=== PATIENT | male | born 1955 | race Caucasian/White ===

== ENCOUNTER → 2016-10-08 | Outpatient (CLI) | payer BC ==
[~2016-10-08] MED LIST: ASPI81TA28 PO; HYDR-5688 PO; IBUP-1050 PO; IBUP1TAB55 PO; PRLSR20 PO
[2016-10-08 10:49] LABS: BLOOD UREA NITROGEN 22 mg/dl (7-18); BUN/CREATININE RATIO 16.9 (10-20); CALCIUM 9.1 mg/dl (8.5-10.1); CARBON DIOXIDE 26 mmol/L (21-32); CHLORIDE 108 mmol/L (98-107); GLUCOSE 90 mg/dl (70-99); POTASSIUM 4.1 mmol/L (3.5-5.1); SODIUM 143 mmol/L (136-145)
[2016-10-08 10:53] LABS: CHOLESTEROL 208 mg/dl (0-200); CHOLESTEROL/HDL RATIO 3.9; HDL CHOLESTEROL 54 mg/dl; LDL CHOLESTEROL CALCULATED 123 mg/dl; TRIGLYCERIDES 153 mg/dl (0-150); VERY LOW DENSITY LIPOPROT CALC 31 mg/dl
== END | disposition home or self-care (01) ==
LOC: C.LAB 07:53
DX: R10.13 Epigastric pain (principal); Z13.220 Encounter for screening for lipoid disorders; E78.4 Other hyperlipidemia

== ENCOUNTER → 2017-04-12 | Outpatient (CLI) | payer BC ==
[2017-04-12 12:41] LABS: BLOOD UREA NITROGEN 19 mg/dl (7-18); BUN/CREATININE RATIO 15.6 (10-20); CALCIUM 8.7 mg/dl (8.5-10.1); CARBON DIOXIDE 25 mmol/L (21-32); CHLORIDE 107 mmol/L (98-107); CHOLESTEROL 194 mg/dl (0-200); GLUCOSE 88 mg/dl (70-99); POTASSIUM 4.2 mmol/L (3.5-5.1); SODIUM 141 mmol/L (136-145)
[2017-04-12 12:48] LABS: CHOLESTEROL/HDL RATIO 3.9; FERRITIN 48.8 ng/ml (8.0-388.0); HDL CHOLESTEROL 50 mg/dl; LDL CHOLESTEROL CALCULATED 111 mg/dl; TRIGLYCERIDES 165 mg/dl (0-150); VERY LOW DENSITY LIPOPROT CALC 33 mg/dl
[2017-04-13 11:49] LABS: C-REACTIVE PROT HIGHSEN 0.2 MG/L
== END | disposition home or self-care (01) ==
LOC: C.LAB 10:25
DX: E78.5 Hyperlipidemia, unspecified (principal); R10.13 Epigastric pain

== ENCOUNTER 2017-07-17 15:45 | Emergency (ER) | payer BC ==
[~2017-07-17] VITALS: Ht 177.8 cm; Wt 92.6 kg
[2017-07-17 15:48] VITALS: BP 142/87; PULSE 108; TEMP 37.3; O2SAT 95; Ht 177.8 cm; Wt 92.6 kg
[2017-07-17] MEDS ORDERED: VNTHFA/IN INH (16:28)
[2017-07-17] MEDS ORDERED: ACET1TAB84 PO (16:28)
[2017-07-17] MEDS ORDERED: ZNTT/150 PO (16:28)
--- NOTE | 2017-07-17 17:41 | EMERGENCY ROOM VISIT NOTE ---
History First contact with patient: 15:53 Chief Complaint: OTHER COMPLAINT Stated Complaint: VOCAL CHORD GOING History of Present Illness The patient is a 62 year old male who presents to the Emergency Room with complaints of sinus congestion, sore throat, and loss of voice over the past 2 days. The patient considers himself usually healthy and does not take medication on regular basis. He concerned as he is having loss of voice over the past half day. He has not had fever or chills. He has a mild nonproductive cough. He does not have known exposure to disease. He does not smoke or use smokeless tobacco. No history of thyroid disease. No injury or trauma. He rates his discomfort a 1/10. Review of Systems More than 10 systems were reviewed and otherwise negative with the exception of history of present illness. Past Medical/Surgical History Medical Problems: (1) HTN (hypertension) Family History FHx: gallstones FATHER Social History Smoking Status: Never Smoker Alcohol Use: occasionally Drug Use: none Marital Status: Housing Status: lives with family Occupation Status: employed Current/Historical Medications Scheduled Albuterol Hfa (Ventolin Hfa), 2 PUFFS INH Q6H Aspirin (Aspirin Ec), 81 MG PO DAILY Ranitidine (Zantac), 150 MG PO BID Scheduled PRN Acetaminophen (Tylenol Arthritis Ext Rel), 1,300 MG PO Q8H PRN for Pain Ibuprofen (Advil), 400-600 MG PO Q6 PRN for Pain Physical Exam Vital Signs Date Time Temp Pulse Resp B/P (MAP) Pulse Ox O2 Delivery O2 Flow Rate FiO2 07/17/17 15:48 37.3 108 18 142/87 95 Room Air Physical Exam VITALS: Vitals are noted on the nurse's note and reviewed by myself. Vital signs stable. GENERAL: Well-developed, well-nourished, white male, who is in no acute distress and resting comfortably. Patient is cooperative with the examination. HEAD: Normocephalic atraumatic. EARS: External ear normal. External auditory canals clear, tympanic membranes pearly barba without erythema or effusion bilaterally. EYES: Pupils equal round and reactive to light and accommodation. Conjunctivae without injection, sclerae without icterus. Extraocular movements intact. NOSE: Patent, turbinates without inflammation or discharge. MOUTH: Mucous membranes moist. Tonsils are surgically absent. Pharynx without erythema, blood, or exudate. Uvula midline. Airway patent. NECK: Supple without nuchal rigidity. No lymphadenopathy. No thyromegaly. Cervical spine is nontender. HEART: Regular rate and rhythm without murmurs gallops or rubs. LUNGS: Clear to auscultation bilaterally without wheezes, rales or rhonchi. No retractions or accessory muscle use. Medical Decision & Procedures ED Course Physical exam and history were performed. Nursing notes, EMR, and Medication List were personally reviewed. Patient appears to have flulike symptoms but no fever. He does have laryngitis on examination. His exam is otherwise unremarkable, and he likely has a flulike illness. I discussed options of care the patient and he will be treated conservatively. He does not smoke and there is no sign of airway obstruction. He needs to follow with his primary care physician if symptoms persist. I do expect things to improve for him over the next few days. He is otherwise welcome ER with any new, worsening, or concerning symptoms. The chart was completed utilizing [employer] Speech Voice Recognition Software. Grammatical errors, random word insertions, pronoun errors, and incomplete sentences are an occasional consequence of this system due to software limitations, ambient noise, and hardware issues. Any formal questions or concerns about the content, text, or information contained within the body of this dictation should be directly addressed to the provider for clarification. . Medical Decision Differential diagnosis: Etiologies such as viral syndrome, otitis, pharyngitis, pneumonia, influenza, meningitis, urinary tract infection, sepsis, bacteremia, as well as others were entertained. Impression Primary Impression: Influenza-like illness Departure Information Dispostion Home / Self-Care Condition GOOD Forms HOME CARE DOCUMENTATION FORM, IMPORTANT VISIT INFORMATION Patient Instructions My [facility] Additional Instructions You were seen and evaluated today on an emergency basis only. This is not a substitute for, or an effort to provide, complete comprehensive medical care. It is not possible to recognize and treat all injuries or illnesses in a single emergency department visit. For this reason it is recommended that you followup with your primary care physician if symptoms persist longer than the next 7-10 days. For baseline pain relief you may alternate ibuprofen and acetaminophen every 4 hours for pain control. Take 600 mg ibuprofen (Advil) and then 4 hours later take 1000 mg acetaminophen (Tylenol). Do not take more than 3000 mg acetaminophen in a single day. Drink plenty of fluids and remain well hydrated. You are welcome to return to the emergency department anytime with new, worsening, or concerning symptoms.
== END 2017-07-17 16:29 | disposition home or self-care (01) ==
LOC: C.EDB 15:46 → C.EDC 16:29
DX: R09.81 Nasal congestion (principal); J02.9 Acute pharyngitis, unspecified; J04.0 Acute laryngitis; I10 Essential (primary) hypertension; Z79.82 Long term (current) use of aspirin

== ENCOUNTER 2023-08-03 05:58 | Inpatient (IN) ==
--- NOTE | 2023-07-15 10:05 | PAT Medication Instructions ---
Medication Instructions Date of Service July 15, 2023 Home Medications aspirin 81 mg tablet,delayed release 81 mg PO QAM famotidine 40 mg tablet 40 mg PO DAILY PRN gerd omega-3 fatty acids [Fish Oil Concentrate] 1 dose PO QAM ASK your prescriber and surgeon aspirin 81 mg tablet,delayed release 81 mg PO QAM STOP taking 2 weeks before surgery (or as soon as possible if surgery is within 2 weeks) omega-3 fatty acids [Fish Oil Concentrate] 1 dose PO QAM Take morning of surgery With a small sip of water, OTHERWISE NOTHING TO EAT OR DRINK AFTER MIDNIGHT: famotidine 40 mg tablet 40 mg PO DAILY PRN gerd (if needed) Other Notes If you have any questions please call us at [phone] or [phone] or [phone] or [phone]
--- NOTE | 2023-07-20 10:22 | Anesthesiology Consultation ---
Date of Service July 20, 2023 Assessment & Plan (1) Encounter for pre-operative examination: Chart Review Chart Review: Acceptable Risk for Surgery and Patient seen in Pre Admission Testing Per PAT appt on 07/20/23, no recent illness/disease exposures, illness related symptoms, or recent illness/disease positive tests. Will leave to surgeon's discretion if preop Covid testing needed Teaching & Discussion Pre-Anesthesia Teaching/Discussion Notes: Instructed NPO after midnight before surgery,except medications with 15 cc of water. Medication instructions provided according to the PAT guidelines. History Surgery Operation Date: 08/03/23 07:30 Proposed Procedures p Robotic Assisted Laparoscopic Radical Retropubic Prostatectomy, Possible Open, Possible Pelvic Lymph Node Dissection - Devante Garcia MD Height/Weight Height: 5 ft 10.5 in Weight: 91.6 kg Allergies Allergy/AdvReac Type Severity Reaction Status Date / Time latex Allergy Mild RASH Verified 07/15/23 09:38 clarithromycin Allergy Unknown Palpitation Verified 07/15/23 09:38 s HAYFEVER Allergy Unknown SEASONAL Uncoded 07/15/23 09:38 ALLERGIES Medications Home Medications Medication Instructions Recorded Confirmed Last Taken aspirin 81 mg tablet,delayed 81 mg PO QAM 02/06/20 07/15/23 Unknown release famotidine 40 mg tablet 40 mg PO DAILY PRN gerd 02/06/20 07/15/23 Unknown omega-3 fatty acids [Fish Oil 1 dose PO QAM 02/06/20 07/15/23 Unknown Concentrate] Past Medical History Medical History GERD (gastroesophageal reflux disease) Well controlled and stable with PRN Pepcid 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 History of migraine History of skin cancer Stage 0 melanoma- removed Prostate cancer recently dx'd PVCs (premature ventricular contractions) per patient - noted during EGD procedure around 2012 - no recent issues Exercise / Class Metabolic Activity II 4-5 Yardwork/Stairs/Walk up hill (one flight of stairs - no chest pain or SOB; jogs/walks 2 miles 3 times weekly (including hills)) Past Family History Family History Other No family history of adverse response to anesthesia Past Surgical History Surgical History (Updated 07/20/23 @ 10:39 by Esther Ramírez PA-C) History of colonoscopy History of esophagogastroduodenoscopy (EGD) History of hand surgery Rt History of oral surgery History of prostate biopsy History of tonsillectomy and adenoidectomy Past Anesthesia History No Hx of Anesthesia Complications and No Family Hx of Anesthesia Complications History of PONV No Hx of PONV and No Hx of Motion Sickness Social History Smoking Status: Never smoker Do You Dip or Chew Tobacco: No Hx Alcohol Use: Yes Alcohol type: beer alcohol intake frequency: other Alcohol Intake Frequency Comment: one beer a month Hx Substance Use: No substance use type: does not use Review of Systems - Seasonal allergies/environmental allergies- occ allergy symptoms throughout the year Patient denies chest pain, shortness of breath, dyspnea on exertion, cough, whe ezing, palpitations. No hx of seizures, stroke, GA, apnea/snoring. No hx of blood clots or blood transfusions Physical Exam Vital Signs VITALS BP 129/81 P 84 TEMP 98.4 SP02 96% RESP 16 Constitutional no acute distress ENMT Mouth: no TMJ clicking Thyromental Distance: > or= 3.5 Finger Breadths (4.0) Mallampati Class: II Missing teeth (molars) Permanent implants on side teeth Neck + limited neck extension (mild) Respiratory normal respiratory effort; no respiratory distress Auscultation: lungs clear to auscultation bilaterally; no wheezes Cardiovascular Rate/Rhythm: regular rate and regular rhythm Heart Sounds: no murmur Vessels: no carotid bruit Musculoskeletal Spine: no pain with cervical ROM Extremities: extremities normal to inspection Psychiatric Orientation: alert Lab Results Anesthesia Preop Results Results Anesthesia Widget: WBC 5.33 K/ul (4.8-10.8) 07/20/23 Hgb 15.4 g/dl (14.0-18.0) 07/20/23 Hct 46.3 % (42.0-52.0) 07/20/23 Plt 191 K/uL (130-400) 07/20/23 Na 138 mmol/L (136-145) 07/20/23 K 4.8 mmol/L (3.5-5.1) 07/20/23 Cl 106 mmol/L (98-107) 07/20/23 CO2 27 mmol/L (21-32) 07/20/23 BUN 21 mg/dl (6-23) 07/20/23 Creat 1.11 mg/dl (0.6-1.4) 07/20/23 Glucose Level 100 mg/dl (70-99(Fasting)) H 07/20/23 Blood Type O Positive 07/20/23 Antibody Screen NEGATIVE 07/20/23 Testing Laboratory Results 07/14/23= URINE CULTURE: Lactobacillus species, 20,000 CFU/ml Electrocardiogram Date: 07/20/23 Findings: + NSR @ (78bpm) Normal EKG per cardio Chest X-Ray Date: 07/20/23 Findings: + NAD FINDINGS: No pneumothorax. No pleural effusions. The lungs are clear. The heart is normal in size. There is a tortuous thoracic aorta. No acute fractures identified Other Testing Bone scan nuclear 06/17/2023 = No scintigraphic evidence of skeletal metastasis. Abdominal/pelvis CT 06/17/23 = No acute intra-abdominal or intrapelvic abnormality. No lymphadenopathy or osteoblastic skeletal metastasis identified. Prostatomegaly with chronic outlet obstruction.
--- OUTSIDE RECORDS SUMMARY | 2023-08-03 06:05 | External Medical Summary | Summary of Care ---
Author Name Unknown Organization [facility] Address [address] [address] Phone [phone] Care Team Providers Care Sap Bw Developer Name Role Phone Anthony Roy DO Primary Care Provider [phone] Reason for Visit * Reason Onset Date Comments Appointment 07/23/2023 Encounter Details Date Type Department Care Team (Late st Contact Info) Description 07/23/2023 [facility] [address] [facility] [place] [phone] Anthony Roy DO [address] [facility] [place] [address] Appointment Allergies Active Allergy Reactions Criticality Noted Date Comments Adhesive Tape Rash 02/27/2008 Clarithromycin 01/27/2022 Other reaction(s): Palpitations Ragweed 01/27/2022 Other reaction(s): itchy eyes, itchy throat documented as of this encounter (statuses as of 07/29/2023) Medications Medication Sig Dispensed Refills Start Date End Date Status CLARITIN TABS 10 MG ORIndications:Allerg ic rhinitis due to other allergen one tab by mouth daily 90 1 01/16/2002 Active ASPIRIN 81 MG PO TABS None Entered 0 Active Famotidine 40 MG Oral Tablet (Pepcid) TAKE 1 TABLET BY MOUTH EVERY DAY BEFORE A MEAL DIRECTED 0 11/08/2021 Active [place]-3 1400 MG Oral Capsule Take by mouth . 0 Active Mens 50+ Multi Vitamin/Min Oral Tablet Take by mouth . 0 Active Ciclopirox 8 % External Solution Apply over nail and surrounding skin. Apply daily over previous coat. After seven (7) days, may remove with alcohol and continue cycle. 6.6 mL 3 08/07/2022 Active documented as of this encounter (statuses as of 07/29/2023) Active Problems Problem Noted Date Diagnosed Date Prostate cancer 07/13/2023 Elevated prostate specific antigen (PSA) 022 Gallbladder sludge 01/27/2022 Gastroesophageal reflux disease without esophagi tis 01/27/2022 Seasonal allergies 01/27/2022 History of malignant melanoma 01/27/2022 Insomnia 11/20/2013 ADVANCE DIRECTIVE INFORMATION 02/27/2008 Overview: No, Advance Directive brochure offered , patient declined. documented as of this encounter (statuses as of 07/29/2023) Immunizations Name Administration Dates Next Due COVID-19 mRNA, LNP-s, No Pre serve, 2-Dose Series (Moderna) 08/17/2020,07/13/2020 COVID-19, mRNA, LNP-s, PF, B ooster, 100mcg/0.5mg (Moderna) 05/01/2021 Pneumococcal Conjugate Vacc, 13 Valent (Prevnar) 10/07/2015 Pneumococcal Polysaccharide PPV23 (Pneumovax) 06/08/2018 Seasonal Influenza, Quadriva lent Hd (Fluzone Hd) 03/15/2023,05/29/2022 Seasonal Influenza, Recombin ant, RIV4, PF, (Flublock) 04/07/2021,04/18/2020,04/28/2019 Seasonal Influenza, Split, I IV3, With Preserve, Inj 04/27/2018,04/08/2015,04/21/2009,06/21,04/23/2003,05/22/2002,05/21/2002 ,05/26/2001 TDAP (age 10 and older)(Boostrix) 11/17/2014 TDAP (age 11 and older)(Adacel) 05/21/2013,06/21 documented as of this encounter Social History Tobacco Use Types Packs/Day Years Used Date Smoking Tobacco: Never Smokeless Tobacco: Never Alcohol Use Standard Drinks/Week Comments Yes 0 (1 standard drink = 0.6 oz pure alcohol) periodically glass of wine with dinner Hunger Vital Sign Answer Date Recorded Within the past 12 months, y ou worried that your food would run out before you got the money to buy more. Patient refused Within the past 12 months, t he food you bought just didn't last and you didn't have money to get more. Patient refused 04/2024 Sex and Gender Information Value Date Recorded Sex Assigned at Choose not to disclose 04/2024 10:04 AM EST Gender Identity Choose not to disclose 10:04 AM EST Sexual Orientation Choose not to disclose 2023 10:04 AM EST Job Start Date Occupation Industry Not on file Not on file Not on file documented as of this encounter Miscellaneous Notes * Telephone Encounter - oCnsuelo Brown OSA - 07/29/2023 9:18 AM EST Hemant'd 12/28/23. * Telephone Encounter - Consuelo Brown OSA - 07/23/2023 2:56 PM EST Received request for screening colonoscopy. Lmm for pt. documented in this encounter Plan of Treatment Upcoming Encounters Date Type Department Care Team (Latest Contact Info) Description 12/28/2023 9:30 AM EDT Hospital Encounter ENDO [facility], Endoscopy Room [facility] [address] [facility] [place] [phone] Roz Rivera MD [address] [place] [address] 12/28/2023 9:30 AM EDT - 12/28/2023 10:00 AM EDT Surgery ENDO [facility], Endoscopy Room [facility] [address] [place] [phone] Roz Rivera MD [address] [place] [address] COLONOSCOPY FLEXIBLE PROXIMAL DIAGNOSTIC Scheduled Procedures Name Priority Associated Diagnoses Date/Ti me COLONOSCOPY FLEXIBLE PROXIMAL DIAGNOSTIC Special screening for malignant neoplasms, colon 12/28/2023 9:30 AM EDT Health Maintenance Due Date Last Done Comments Depression Screening 1965 Hepatitis C Screening 1971 Cologuard 1998 Colonoscopy 1998 Colorectal Cancer Screening 1998 Fecal Occult Blood Test 1998 Sigmoidoscopy 1998 Zoster Vaccines (1 of 2) 2003 COVID-19 Vaccine (4 - 2022- season) 2023 05/01/2021, 08/17/2020, 07/13/2020 DTaP,Tdap,and Td Vaccines (4 - Td or Tdap) 11/17/2024 11/17/2014, 05/21/2013, 06/21/2005 Lipid Panel 03/09/2028 03/09/2023, 02/01/2023, 06/09/2019, Additional history exists Pneumococcal Vaccine: 65+ Years Completed 06/08/2018, 10/07/2015 Influenza Vaccine (FLU shot) Completed , 05/29/2022, 04/07/2021, Additional history exists GARDASIL-HPV IMMUNIZATION SERIES Aged Out No longer eligible based on patient's age to complete this topic Hepatitis B Aged Out No longer eligi ble based on patient's age to complete this topic MENINGOCOCCAL (MENACTRA/MENVEO) Aged Out No longer eligible based on patient's age to complete this topic documented as of this encounter Medical Devices Not on filedocumented as of this encounter Care Teams Sap Bw Developer Relationship Specialty Start Date End Date Anthony Roy DO [address] [place] [address] PCP - General Family Medicine 05/20/22 documented as of this encounter
--- OUTSIDE RECORDS SUMMARY | 2023-08-03 06:05 | External Medical Summary | Summary of Care ---
Author Name Unknown Organization [facility] Address [address] [address] Phone [phone] Care Team Providers Care Industrial Automation Engineer Name Role Phone Anthony Roy DO Primary Care Provider [phone] Reason for Visit * Reason Onset Date Comments Appointment 07/23/2023 Encounter Details Date Type Department Care Team (Late st Contact Info) Description [facility]/23/[facility] [address] [facility] [place] [phone] Anthony Roy DO [address] [facility] [place] [address] Appointment Allergies Active Allergy Reactions Criticality Noted Date Comments Adhesive Tape Rash 02/27/2008 Clarithromycin 01/27/2022 Other reaction(s): Palpitations Ragweed 01/27/2022 Other reaction(s): itchy eyes, itchy throat documented as of this encounter (statuses as of 07/23/2023) Medications Medication Sig Dispensed Refills Start Date End Date Status CLARITIN TABS 10 MG ORIndications:Allerg ic rhinitis due to other allergen one tab by mouth daily 90 1 01/16/2002 Active ASPIRIN 81 MG PO TABS None Entered 0 Active Famotidine 40 MG Oral Tablet (Pepcid) TAKE 1 TABLET BY MOUTH EVERY DAY BEFORE A MEAL DIRECTED 0 11/08/2021 Active [place]-3 1400 MG Oral Capsule Take by mouth . 0 Active Mens 50+ Multi Vitamin/Min Oral Tablet Take by mouth . 0 Active Ciclopirox 8 % External Solution Apply over nail and surrounding skin. Apply daily over previous coat. After seven (7) days, may remove with alcohol and continue cycle. 6.6 mL 3 08/07/2022 Active documented as of this encounter (statuses as of 07/23/2023) Active Problems Problem Noted Date Diagnosed Date Prostate cancer 07/13/2023 Elevated prostate specific antigen (PSA) 022 Gallbladder sludge 01/27/2022 Gastroesophageal reflux disease without esophagi tis 01/27/2022 Seasonal allergies 01/27/2022 History of malignant melanoma 01/27/2022 Insomnia 11/20/2013 ADVANCE DIRECTIVE INFORMATION 02/27/2008 Overview: No, Advance Directive brochure offered , patient declined. documented as of this encounter (statuses as of 07/23/2023) Immunizations Name Administration Dates Next Due COVID-19 mRNA, LNP-s, No Pre serve, 2-Dose Series (Moderna) 08/17/2020,07/13/2020 COVID-19, mRNA, LNP-s, PF, B ooster, 100mcg/0.5mg (Moderna) 05/01/2021 Pneumococcal Conjugate Vacc, 13 Valent (Prevnar) 10/07/2015 Pneumococcal Polysaccharide PPV23 (Pneumovax) 06/08/2018 Seasonal Influenza, Quadriva lent Hd (Fluzone Hd) 03/15/2023,05/29/2022 Seasonal Influenza, Recombin ant, RIV4, PF, (Flublock) 04/07/2021,04/18/2020,04/28/2019 Seasonal Influenza, Split, I IV3, With Preserve, Inj 04/27/2018,04/08/2015,04/21/2009,06/21,04/23/2003,05/21/2002 TDAP (age 10 and older)(Boostrix) 11/17/2014 TDAP [...] encounter Miscellaneous Notes * Telephone Encounter - Consuelo Brown OSA - 07/23/2023 2:56 PM EST Received request for screening colonoscopy. Lmm for pt. documented in this encounter Plan of Treatment Upcoming Encounters Date Type Department Care Team (Latest Contact Info) Description 12/28/2023 9:30 AM EDT Hospital Encounter ENDO [facility], Endoscopy Room [facility] [address] [facility] [place] [phone] Roz Rivera MD [address] [place] [address] 12/28/2023 9:30 AM EDT - 12/28/2023 10:00 AM EDT Surgery ENDO [facility], Endoscopy Room [facility] [address] [place] [phone] Roz Rivera MD [address] [place] [address] COLONOSCOPY FLEXIBLE PROXIMAL DIAGNOSTIC Scheduled Procedures Name [...] of 2) 2003 COVID-19 Vaccine (4 - season) 2023 05/01/2021, 08/17/2020, 07/13/2020 DTaP,Tdap,and Td Vaccines (4 - Td or Tdap) 11/17/2024 11/17/2014, 05/21/2013, 06/21/2005 Lipid Panel 03/09/2028 03/09/2023, 02/0 01/2023, 06/09/2019, Additional history exists Pneumococcal Vaccine: 65+ [...] filedocumented as of this encounter Care Teams Industrial Automation Engineer Relationship Specialty Start Date End Date Anthony Roy DO [address] [place] [address] PCP - General Family Medicine 05/20/22 documented as of this encounter
[2023-08-03] MEDS: HEPARIN SOD 5,000 UNIT/0.5 ML VIAL SC SCH (06:24)
[2023-08-03] MEDS: LR 15ML/HR IV SCH (06:24)
[2023-08-03] MEDS ORDERED: ROCURONIUM BROMIDE 10 MG/ML 5 ML VIAL IV ONE (06:41)
[2023-08-03] MEDS ORDERED: PROPOFOL IV EMULSION 10 MG/ML 20 ML VIAL IV ONE (06:41)
[2023-08-03] MEDS ORDERED: GLYCOPYRROLATE 0.2 MG/ML VIAL ONE (06:41)
[2023-08-03] MEDS ORDERED: ONDANSETRON INJ 2 MG/ML 2 ML VIAL ONE (06:41)
[2023-08-03] MEDS ORDERED: DEXAMETHASONE SOD INJ 4 MG/ML VIAL ONE (06:41)
[2023-08-03] MEDS ORDERED: MIDAZOLAM HCL 1 MG/ML 2ML VIAL ONE (06:41)
[2023-08-03] MEDS ORDERED: LIDOCAINE 2% 2 ML VIAL/AMP(20MG/ML) INFIL ONE (06:41)
[2023-08-03] MEDS ORDERED: fentaNYL citrate PF 100 MCG/2 ML VIAL ONE ×2 (06:42→08:21)
[2023-08-03] MEDS ORDERED: ATROPINE SULFATE 0.1 MG/ML 10ML SYR IV PRN (07:01)
[2023-08-03] MEDS ORDERED: KETOROLAC 30 MG/ML VIAL IV PRN (07:01)
[2023-08-03] MEDS ORDERED: PROMETHAZINE HCL 6.25 MG in SODIUM CHLORIDE 0.9% 50 ML IV PRN (07:01)
--- NOTE | 2023-08-03 07:33 | History & Physical Bridge Note ---
Date of Service August 03, 2023 History & Physical Bridge Note I have examined the patient, reviewed the History & Physical and in the interval since the performance of the History & Physical I have noted the following changes of clinical significance: no changes noted
[2023-08-03] MEDS ORDERED: SUGAMMADEX SODIUM 200 MG/2 ML VIAL IV ONE (08:04)
[2023-08-03] MEDS: FLOSEAL HEMOSTATIC MATRIX 10ML TOP ONE (10:10)
[2023-08-03] MEDS: SURGICEL ABSORB HEMOSTAT 2IN X 14IN TOP ONE (10:10)
[2023-08-03] MEDS: BUPIVACAINE 0.5 % 5 MG/1 ML MPF 30ML VIAL ONE (10:23)
--- NOTE | 2023-08-03 10:53 | Operative Report ---
PG Post Operative Report Pre & Post Diagnosis Operation Date: 08/03/23 07:30 Pre-Op Diagnosis: Malignant Neoplasm of Prostate Post-Op Diagnosis: Malignant Neoplasm of Prostate I identified the patient and participated in the time-out.: Yes Procedure Operation Date: 08/03/23 07:30 Actual Procedures p Robotic Assisted Laparoscopic Radical Retropubic Prostatectomy, with Pelvic Lymph Node Dissection, umbilical hernia repair(Not Applicable) - Devante Garcia MD Surgeon Devante Garcia MD [employer] Kathryn Ochoa Estimated Blood Loss 100 Findings Consistent with Post-Op Diagnosis Specimens 1. Periprostatic fat 2. Left pelvic lymph nodes 3. Right pelvic lymph nodes (have a clip attached to it as a marking agent) 4. Prostate seminal vesicles Description of Procedure The patient was identified in the preoperative holding area, appropriate informed consents were reviewed and completed, and he was transported to the operating suite. Subcutaneous heparin was administered in the pre-operative holding area. Upon arrival in the operating suite, he received appropriate antibiotics and general anesthesia. He was positioned in dorsal lithotomy, a B&O suppository was inserted after digital rectal exam, and he was prepped and draped in standard fashion. A Hodge catheter was inserted in the sterile field. A Veress needle was passed per umbilicus with uniform insufflation of the abdomen to 15mmHg. He was placed in steep Trendelenburg position. A periumbilical incision was then made to accommodate a 12mm Visiport with 10mm 0degree laparoscope. Inspection of the abdomen was carried out, and there was no evidence of traumatic entry or injury secondary to the Veress needle. After confirming a clear anterior abdominal wall, ports were subsequently placed in standard robotic prostatectomy fashion without incident. To begin the robotic portion of the case, the left lateral aspect of the sigmoid was mobilized off of the left pelvic side wall to allow the pouch of Feng to be appropriately visualized. I then made an incision in the pouch of Feng, overlying the seminal vesicles. Both SVs as well as the ampullae of the vasa were entirely dissected, with the vasa transected 3cm from the prostate. The medial umbilical ligaments were then controlled with bipolar electrocautery just inferior to the umbilicus. Following cauterization, they were divided utilizing monopolar cautery. A peritoneal incision was carried from this location to the medial aspect of the internal inguinal rings bilaterally with care to avoid opening through the ring. This incision was concluded when the vas deferens was reached. Dissection of the bladder and prostate off of the posterior aspect of the pubic arch was completed allowing full visualization of the prostate. The fat overlying the prostate was removed en bloc and passed off the table as a specimen labeled "periprostatic fat". The endopelvic fascia was cleared during this portion of the procedure, and subsequently opened - first on the right and then the left. The incision through the endopelvic fascia began near the prostate-bladder junction and was carried to the apex with extreme care to preserve all lateral levator musculature as well as the periurethral musculature and sphincter complex. I additionally preserved the puboprostatic ligaments. I then controlled the DVC with a 3-0 V-lock suture in overlapping/figure of 8 fashion. The lymph node dissection was then conducted. External iliac vessels were identified on the pelvic side wall. The packet of fat and lymphatic tissue that resides just under the iliac vein was elevated and off of the vein with a split and roll technique. The packet was dissected laterally to the circumflex vein and distally to the obturator nerve which was preserved. The proximal aspect of the packet was carried towards the bifurcation of the iliac vessels. A combination of monopolar and bipolar cautery were used to assist with control. After completing the dissection on both sides, the packets were collected in an Endo Catch bag.. Of note, the right packet was marked with a clip. My attention then returned to the prostate, with identification of the bladder neck aided by gentle traction on the Hodge catheter and lateral to medial pressure at the presumed level of the bladder neck with the robotic instruments. An anterior cystotomy was made, the Hodge balloon deflated and the catheter guided through the incision to allow anterior retraction. I attempted to pr eserve maximal bladder neck musculature as I circumferentially dissected around the bladder neck. After incision through the posterior aspect of the mucosa, the dissection was carried through detrusor muscle until the bilateral ampullae of the vasa were identified. The previously dissected vasa and SVs were brought through the incision and used to elevated the prostate anteriorly. A posterior plane behind the prostate was then developed - splitting Denonvilliers's fascia. This dissection was carried as far as possible towards the apex as well as far as possible laterally. An incision in the lateral prostatic fascia was then made bilaterally to facilitate control of the vascular pedicles and preservation of the nerve bundles. Vasculature running along the posterior/lateral aspect of the prostate was preserved as well as the tissue containing the nerves. The pedicles were then controlled with a series of Weck clips. The apical attachments of the prostate were remaining at that stage. The DVC was divided after control with bipolar cautery over the prostate. Continuous inspection from anterior and lateral views allowed me to closely follow the apical contour of the prostate and maximally preserve urethral length and tissue. The prostate was entirely freed at that point, and collected in an EndoCatch bag before being moved out of the field of vision. Hemostasis was confirmed and anastomosis of the bladder and urethra was completed utilizing a double armed V- Lock stitch. A new Hodge catheter was inserted and the anastomosis tested with irrigation. There was no evidence of leak. A soumya style stitch was placed bilaterally to functionally marsupialize the area of the lymph node dissection. The robot was undocked, the specimen extracted through expansion of the michael- umbilical camera port. Of note, he has an umbilical hernia which is fat- containing I opened through the hernia sac and removed the lobule of fat. I then reapproximated the fascia after mobilizing the side slightly. A series of 4 [id number] PDS sutures were used to close the fascia. This effectively repaired the hernia. I anesthetized the muscle and skin in all incisions. I then closed all incisions with 4-0 Monocryl and Dermabond. The case was concluded and the patient taken to the PACU in stable condition. Kathryn Ochoa assisted from incision to closure I attest to the content of the Intraoperative Record and any orders documented therein. Any exceptions are noted below.
[2023-08-03] MEDS: HYDROmorphone INJ 1 MG/ML SYRINGE IV PRN (11:00)
[2023-08-03 11:13] LABS: Basophils # (auto) 0.02 K/uL (0.00-0.20); Basophils % (auto) 0.2 %; Eosinophils # (auto) 0.01 K/uL (0.00-0.50); Eosinophils % (auto) 0.1 %; Hemoglobin 15.4 g/dl (14.0-18.0); Immature Granulocytes # (auto) 0.03 K/uL (0.01-0.20); Immature Granulocytes % (auto) 0.3 %; Lymphocytes # (auto) 0.78 K/uL (1.20-3.40); Lymphocytes % (auto) 8.3 %; Mean Corpuscular Hemoglobin 32.1 pg (25.0-34.0); Mean Corpuscular Hgb Conc 32.8 g/dL (32.0-36.0); Mean Corpuscular Volume 97.9 fL (80.0-100.0); Mean Platelet Volume 10.1 fL (9.4-12.4); Monocytes # (auto) 0.23 K/uL (0.11-0.59); Monocytes % (auto) 2.4 %; Neutrophils # (auto) 8.37 K/uL (1.40-6.50); Neutrophils % (auto) 88.7 %; Platelet Count 219 K/uL (130-400); RDW Coefficient of Variation 12.1 % (11.5-14.5); RDW Standard Deviation 43.8 fL (36.4-46.3); White Blood Count 9.44 K/ul (4.8-10.8)
[2023-08-03 11:29] LABS: BUN Creatinine Ratio 10.9 (10-20); Calcium 8.7 mg/dl (8.6-10.3); Creatinine Clr Calc Pharmacy 60.6 ml/min; Est GFR (African American) 64.7 ml/min; Est GFR (Non-African American) 55.8 ml/min; Potassium 4.1 mmol/L (3.5-5.1)
--- NOTE | 2023-08-03 12:20 | Anesthesiology Progress Note ---
Date of Service August 03, 2023 Anesthesia Post Procedure Vital Signs Vital Signs: Temp Pulse Pulse Resp BP Pulse Ox O2 Del Method 08/03/23 12:15 92 H 19 128/80 97 Nasal Cannula 08/03/23 12:00 89 19 127/81 95 Nasal Cannula 08/03/23 11:55 36.7 C 86 20 124/79 93 Nasal Cannula 08/03/23 11:45 89 15 125/80 94 Nasal Cannula 08/03/23 11:35 86 13 128/80 93 Nasal Cannula 08/03/23 11:25 87 13 130/82 95 Nasal Cannula 08/03/23 11:15 82 12 142/86 H 94 Oxymask 08/03/23 11:05 77 13 138/86 97 Oxymask 08/03/23 10:55 75 17 116/76 96 Oxymask 08/03/23 10:48 36.6 C 75 17 128/78 96 Oxymask 08/03/23 06:15 37.2 C 90 18 153/93 H 96 Room Air O2 Flow Rate 08/03/23 12:15 3 08/03/23 12:00 3 08/03/23 11:55 3 08/03/23 11:45 2 08/03/23 11:35 2 08/03/23 11:25 2 08/03/23 11:15 2 08/03/23 11:05 2 08/03/23 10:55 4 08/03/23 10:48 6 08/03/23 06:15 Pain Intensity Abdomen: Pain Intensity: 6 Transfer of Care Handoff Completed per policy Notes Mental Status: alert / awake / arousable Patient Amnestic to Procedure: Yes Nausea / Vomiting: adequately controlled Pain: adequately controlled Airway Patency, RR, SpO2: stable & adequate BP & HR: stable & adequate Hydration State: stable & adequate Anesthetic Complications: no major complications apparent
[2023-08-03] MEDS ORDERED: FAMOTIDINE 40 MG TABLET PO PRN (13:14)
[2023-08-03] MEDS ORDERED: oxyCODONE HCL IR 5 MG TAB (IMMEDIATE RELEASE) PO PRN (13:14)
[2023-08-03] MEDS ORDERED: ALBUTEROL HFA 8 GM INHALER INH PRN (13:14)
[2023-08-03] MEDS: ONDANSETRON INJ 2 MG/ML 2 ML VIAL IV PRN (13:35)
[2023-08-03] MEDS: MoRPHine SULFATE 4 MG/ML 1 ML CARP\\VIAL IV PRN (13:35)
[2023-08-03] MEDS: ACETAMINOPHEN 325 MG TAB PO SCH (14:16)
[2023-08-03] MEDS: SODIUM CHLORIDE 0.9% 1,000 ML IV SCH (15:38)
[2023-08-03] MEDS: ceFAZolin 2000MG 2,000 MG/15 ML SYR IV SCH (16:42)
[2023-08-03] MEDS: PHENAZOPYRIDINE HCL 200 MG TAB PO PRN (19:21)
[2023-08-03] MEDS: oxyCODONE HCL IR 5 MG TAB (IMMEDIATE RELEASE) PO PRN (20:04)
[2023-08-03] MEDS: HEPARIN SOD 5,000 UNIT/0.5 ML VIAL SQ SCH (21:15)
[2023-08-03] MEDS: DOCUSATE SODIUM 100 MG CAP PO SCH (21:16)
[2023-08-03] MEDS: MoRPHine SULFATE 2 MG/ML CARP IV PRN (22:26)
[2023-08-03] MEDS: MoRPHine SULFATE 2 MG/ML CARP IV ONE (23:10)
[2023-08-03] MEDS: KETOROLAC TROMETHAMINE 15 MG/ML VIAL IV ONE (23:10)
--- NOTE | 2023-08-03 23:13 | Communication Note ---
Date of Service: August 03, 2023 I was called by RN concerning this patient at approximately 10:42 PM. There is visit patient was complaining considerable abdominal cramping and requested to report to bedside to evaluate patient. Arrived at the bedside within 5 minutes. This patient underwent a robotic prostatectomy earlier today by Dr. Garcia. On visiting the patient he complained of abdominal pain greatest in the suprapubic area. He denies any nausea or vomiting. No fevers, shakes, or chills. I discussed with the nurse and the patient is known to be hemodynamically stable and afebrile. He is normotensive without tachycardia. Thus far for pain patient has received 2 mg of intravenous morphine at approximately 10:30 PM. He is also received 200 mg of oral Pyridium at approximately 7:20 PM. He is also received 650 mg of oral Tylenol at approximately 6:30 PM. Nursing staff also notes the patient's Hodge catheter is patent and draining appropriately. On physical exam the patient's abdomen has mild distention. All of his incisions are clean, dry, and intact. The majority of patient's pain with palpation is located in the suprapubic region. Due to the patient's ongoing pain we will try an additional dose of 2 mg of intravenous morphine as well as 15 mg of intravenous Toradol to see if that helps alleviate any of the patient's pain. Will continue to use Tylenol and Pyridium as ordered. Nursing staff will notify me if these measures are ineffective.
[2023-08-04 07:05] LABS: Basophils # (auto) 0.02 K/uL (0.00-0.20); Basophils % (auto) 0.2 %; Eosinophils # (auto) 0.01 K/uL (0.00-0.50); Eosinophils % (auto) 0.1 %; Hematocrit (blood only) 45.1 % (42.0-52.0); Hemoglobin 14.5 g/dl (14.0-18.0); Immature Granulocytes # (auto) 0.06 K/uL (0.01-0.20); Immature Granulocytes % (auto) 0.5 %; Lymphocytes # (auto) 1.32 K/uL (1.20-3.40); Lymphocytes % (auto) 10.5 %; Mean Corpuscular Hemoglobin 31.9 pg (25.0-34.0); Mean Corpuscular Hgb Conc 32.2 g/dL (32.0-36.0); Mean Corpuscular Volume 99.1 fL (80.0-100.0); Mean Platelet Volume 10.4 fL (9.4-12.4); Monocytes # (auto) 1.24 K/uL (0.11-0.59); Monocytes % (auto) 9.8 %; Neutrophils # (auto) 9.94 K/uL (1.40-6.50); Neutrophils % (auto) 78.9 %; Platelet Count 191 K/uL (130-400); RDW Coefficient of Variation 12.5 % (11.5-14.5); RDW Standard Deviation 46.1 fL (36.4-46.3); Red Blood Count 4.55 M/uL (4.70-6.10); White Blood Count 12.59 K/ul (4.8-10.8)
[2023-08-04 08:35] LABS: Calcium 8.6 mg/dl (8.6-10.3); Potassium 3.7 mmol/L (3.5-5.1)
[2023-08-04 08:41] LABS: BUN Creatinine Ratio 11.2 (10-20); Creatinine Clr Calc Pharmacy 58.3 ml/min; Est GFR (African American) 61.8 ml/min; Est GFR (Non-African American) 53.3 ml/min
[2023-08-04] MEDS ORDERED: KETOROLAC TROMETHAMINE 15 MG/ML VIAL IV PRN (09:16)
[2023-08-04] MEDS: oxyBUTYnin chloride 5 MG TAB PO SCH (09:29)
[2023-08-04] MEDS: CEROVITE ADV FORMULA TAB PO SCH (09:29)
[2023-08-04] MEDS: ASPIRIN 81 MG ECTAB PO SCH (09:29)
--- NOTE | 2023-08-04 14:00 | Urology Progress Note ---
Date of Service August 04, 2023 Assessment & Plan (1) Prostate cancer: Plan: 68 yo M POD #1 s/p Robotic Laparoscopic-Assisted Radical Retropubic Prostatectomy with Dr. Garcia. - Afebrile, stable vitals - Post op lab work reviewed and as expected - Issues with suprapubic pain overnight likely bladder spasms, seems to be improving - Will add Oxybutynin for bladder spasms - Tolerating clear liquid diet - advance diet today, d/c IV fluids - Encouraged OOB ambulation - Incisions appropriate - Hodge catheter intact, patent and draining clear orange urine - Maintain Hodge catheter upon discharge - Expected clinical course reviewed, all questions answered - Anticipate discharge to home later today if he continues to progress as expected - Outpatient follow-ups in place Admission and Anticipated Discharge Date Admission Date: August 03, 2023 Subjective Patient seen and examined with Dr. Garcia this am Issues with suprapubic discomfort/bladder spasms overnight Symptoms seem to be improving this morning Hodge patent and draining clear orange urine Tolerating clear liquid diet Denies nausea, vomiting, fever or chills Review of Systems Constitutional: as per Subjective / HPI Gastrointestinal: as per Subjective / HPI Genitourinary: + as per Subjective / HPI Physical Exam Constitutional: well developed and well nourished; no acute distress Respiratory: normal respiratory effort; no respiratory distress and no labored breathing Gastrointestinal (Abdomen): Inspection/Auscultation: abdomen not distended Percussion/Palpation: abdomen soft appropriately tender (mild) near incisions Musculoskeletal: Head/Neck/Chest: normocephalic Skin: Incisions C/D/I with dermabond Neurologic: moves all extremities and awake Psychiatric: Orientation: alert and oriented x 3 Genitourinary: Hodge patent and draining clear orange urine Results & Data Vital Signs (Past 12 Hours) Vital Signs Temp Pulse Resp BP Pulse Ox O2 Del Method O2 Flow Rate 08/04/23 12:00 36.9 C 76 18 130/68 97 Room Air 08/04/23 07:23 37 C 76 18 122/70 97 Nasal Cannula 1 08/04/23 02:03 37.1 C 80 16 152/84 H 95 Nasal Cannula 2 PG Care Time/CCT Total # of Minutes Spent Total Time Spent with Patient: Total time spent is greater than 50% in coordination of care (as documented) at patient's floor/unit and/or counseling patient: Coding Level of Care Code None Diagnoses Prostate cancer C61
--- NOTE | 2023-08-04 14:03 | Discharge Summary ---
Date of Service August 04, 2023 Admission HPI Per Admitting Provider Patient with prostate cancer here for Robotic Assisted Laparoscopic Radical Retropubic Prostatectomy. Admission Exam Per Admitting Provider Physical Exam Constitutional well developed and well nourished Neck neck nontender Respiratory normal respiratory effort; no respiratory distress and does not use accessory muscles Cardiovascular Rate/Rhythm: regular rate Vessels: radial pulses present Extremities: no edema Gastrointestinal (Abdomen) Inspection/Auscultation: abdomen normal to inspection (Umbilical hernia, nontender, easily reduced) and + visible herniation Percussion/Palpation: abdomen soft; abdomen nontender and no guarding Musculoskeletal Head/Neck/Chest: normocephalic and head atraumatic Extremities: extremities normal to inspection Skin no rashes and no lesions Trauma: no evidence of skin trauma Neurologic awake; not obtunded Speech / Cognition: normal speech Motor/Sensory: no tremor Psychiatric Orientation: alert and oriented x 3 Genitourinary no CVA tenderness Lymphatic no lymphadenopathy Principal Diagnosis Prostate Cancer Discharge Exam Constitutional well developed and well nourished; no acute distress Respiratory normal respiratory effort; no respiratory distress and no labored breathing Gastrointestinal (Abdomen) Inspection/Auscultation: abdomen not distended Percussion/Palpation: abdomen soft Musculoskeletal Head/Neck/Chest: normocephalic Neurologic moves all extremities and awake Psychiatric Orientation: alert and oriented x 3 Genitourinary Hodge patent and draining clear orange urine Discharge Data Allergies Allergy/AdvReac Type Severity Reaction Status Date / Time latex Allergy Mild RASH Verified 08/03/23 06:58 clarithromycin Allergy Unknown Palpitation Verified 08/03/23 06:58 s grass pollen-perennial rye, AdvReac Fever Verified 08/03/23 13:26 standar Procedures Performed Operation Date: 08/03/23 07:30 Actual Procedures p Robotic Assisted Laparoscopic Radical Retropubic Prostatectomy, with Pelvic Lymph Node Dissection, (Not Applicable) - Devante Garcia MD s umbilical hernia repair(Not Applicable) - Devante Garcia MD Hospital Course (1) Prostate cancer: 68 yo M POD #1 s/p Robotic Laparoscopic-Assisted Radical Retropubic Prostatectomy with Dr. Garcia. - Afebrile, stable vitals - Post op lab work reviewed and as expected - Issues with suprapubic pain overnight likely bladder spasms, seems to be improving - Will add Oxybutynin for bladder spasms - Tolerating clear liquid diet - advance diet today, d/c IV fluids - Encouraged OOB ambulation - Incisions appropriate - Hodge catheter intact, patent and draining clear orange urine - Maintain Hodge catheter upon discharge - Expected clinical course reviewed, all questions answered - Anticipate discharge to home later today if he continues to progress as expected - Outpatient follow-ups in place Total Time Total Time Spent Total Time Spent (In Minutes): 29 Discharge Plan Discharge Items Patient Disposition: Home - Self-Care Reason For Visit: Malignant Neoplasm of Prostate Discharge Diagnosis: Malignant Neoplasm of Prostate Activity: Per Instructions section Lifting: No more than 10 pounds Bathing Comment: Okay to shower after discharge, no tub bath or soaking Sexual Activity: Wait until after follow-up appointment Exercise/Sports: Wait until after follow-up appointment Driving/Machine Use: No driving while taking prescription pain medication Non-emergency contact: Surgeon and Urologist Call non-emergency contact if: your pain is not controlled, your pain is worsening, your pain is unusual for you, you have a fever, your temperature is above 101, your wound has increased redness, your wound has increased drainage a nd your wound pain has increased Follow-up/Referrals: Devante Garcia MD [Physician] - 08/19/23 9:45 am Anthony Roy DO [Primary Care Provider] - Urology,Nurse [FAKE FOR SCHEDULES] - 08/09/23 8:00 am Diet: Regular Addtl Attending Provider Instructions: Please take all medications as prescribed and keep all follow-ups as scheduled. Please call our office at [phone] with any questions, concerns or need to reschedule appointments for any reason. We are happy to assist you. We have sent an antibiotic to your pharmacy of choice. Please begin antibiotic as prescribed the day BEFORE your scheduled voiding trial at [facility] [place] [facility]. Please continue antibiotic every 12 hours through the day AFTER your voiding trial. Activity: We recommend having someone with you for the first few days after surgery to help care for you. For the first 2 weeks after surgery, we would like you to get up and walk around your house. However, we recommend limit physical activity that would increase your heart rate. This will allow your body to rest and heal. Take naps if you feel tired. Don't lift anything heavier than 10 pounds, mow the law or ride a bicycle until your follow-up appointment. Please avoid long car rides. Home Care: Unless directed otherwise, drink 6 to 8 glasses of water a day (enough to keep your urine light colored). This will also help keep a healthy flow of urine. We recommend using a stool softener for the first two weeks to avoid constipation. Hodge Catheter or Suprapubic Catheter care: Keep the catheter well secured with either a leg back or leg strap with large bag. Empty your bag when it's about half full. You may notice some blood in the bag. This is normal after surgery and while the catheter is in place. Use mild soap (such as Dove or Dial) and water to wash the catheter and the head of your penis daily, or more frequently if needed. Return to your normal diet, we encourage good protein intake to promote healing. You may shower as normal. Please avoid tub baths or soaking until catheter removed and incisions well healed. Wearing sweat pants while you have the catheter is recommended, they will be more comfortable. Follow-up Your follow up appointments for having your catheter removed, and follow up with your physician should already be scheduled. If you have any questions regarding this, please contact our office. Your final pathology report will be discussed at your physician follow-up appointment. Call [facility] at [phone] right away if you have any of the following: Chest pain or trouble breathing (call [phone] or go to the hospital) Fever of 101F or higher, uncontrolled vomiting Heavy bleeding, clots, or bright red blood from the catheter Catheter that falls out or stops draining Foul-smelling discharge from your catheter Redness, swelling, warmth, or increased pain at your incision site Drainage, pus, or bleeding from your incision Pending Studies at Discharge: Yes (pathology) Stand-Alone Forms: My CoverMyMeds, Smoking Cessation Medications and DC Order Prescriptions: New ciprofloxacin HCl 500 mg tablet 500 mg PO BID Qty: 6 0RF Rx Instructions: start 1 day prior to catheter removal oxycodone-acetaminophen [Percocet] 5-325 mg tablet 1 tab PO TID PRN (Reason: pain) Qty: 10 0RF docusate sodium [Colace] 100 mg capsule 100 mg PO BID Qty: 60 0RF Rx Instructions: Take twice daily for 2 weeks, then as needed for constipation. oxybutynin chloride 5 mg tablet 5 mg PO Q8H PRN (Reason: bladder spasms) Qty: 20 0RF phenazopyridine [Pyridium] 200 mg tablet 200 mg PO Q8H PRN (Reason: pain) Qty: 7 0RF Continued aspirin 81 mg tablet,delayed release (DR/EC) 81 mg PO QAM famotidine 40 mg tablet 40 mg PO DAILY PRN (Reason: gerd) omega-3 fatty acids 1 dose PO QAM albuterol sulfate 90 mcg/actuation Hfa Aerosol Inhaler 2 puff INHALATION Q6H PRN (Reason: Shortness Of Breath Or Wheezing) Multivitamin 50 Plus Tablet 1 tab PO DAILY Discharge Orders: Discharge Order (Routine); Ordered 08/04/23 Ordered By: Kathryn Pagan/Other Patient Handouts: Urinary Catheter Bag Empty Clean, Indwelling Urinary Catheter Dc, Leg Bag Care Dc Admission Data Admit Date/Time: 08/03/23 10:45 Attending Provider: Devante Garcia Admit Provider: Devante Garcia Primary Care Provider: Anthony Roy Other Interventions: Discharge Summary Assessment (RN) Last Done: 08/04/23 14:14 Coding Level of Care Code 65796 IN/OBS DISCH 30 MIN/LESS Diagnoses Prostate cancer C61
== END 2023-08-04 15:20 | disposition home or self-care (01) | DRG 708 ==
LOC: ASU 05:58 → PACUINP 10:45 → OBSVTOIN 10:45 → INTOOBSV 10:45 → 3W 14:51